=== PATIENT | female | born 1985 | race Caucasian/White ===

== ENCOUNTER 2019-07-30 03:46 | Inpatient (IN) | payer BC, OTHER ==
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
[2019-07-30 05:06] LABS: Basophils % (A) 0 %; Eosinophils # (A) 0.2 k/uL (0-0.7); Eosinophils % (A) 2 %; HCT 40.9 % (34.0-46.0); Lymphocytes # (A) 1.8 k/uL (1.0-4.8); Lymphocytes % (A) 17 %; MCH 31.8 pg (25.0-35.0); MCHC 34.2 g/dL (31.0-37.0); Mean Platelet Volume 6.8; Monocytes # (A) 0.5 k/uL (0-1.0); Monocytes % (A) 5 %; Neutrophils # (A) 7.8 k/uL (1.3-7.7); Neutrophils % (A) 74 %; Platelet Count 277 k/uL (150-450); RDW 11.9 % (11.5-15.5); WBC 10.5 k/uL (3.8-10.6)
[2019-07-30 05:17] LABS: Appearance,Urine Cloudy (Clear); Bacteria,Urine Rare /hpf; Bilirubin,Urine Negative (Negative); Blood,Urine Moderate (Negative); Color,Urine Yellow; Glucose,Urine (UA) Negative (Negative); Hyaline Casts,Urine 19 /lpf (0-2); Ketones,Urine 1+ (Negative); Leukocyte Esterase,Urine Trace (Negative); Mucus,Urine Few /hpf; Nitrite,Urine Negative (Negative); PH, Urine 5.5 (5.0-8.0); Protein,Urine 1+ (Negative); RBC,Urine 3 /hpf (0-5); Specific Gravity,Urine 1.031 (1.001-1.035); Squamous Epithelial Cell,Urine 13 /hpf (0-4); Urobilinogen,Urine <2.0 mg/dL (<2.0); WBC,Urine 8 /hpf (0-5)
[2019-07-30 05:20] LABS: Amphetamine Screen,Urine Not Detected (NotDetected); Barbiturate Screen,Urine Not Detected (NotDetected); Benzodiazepines Screen,Urine Not Detected (NotDetected); Cocaine Screen,Urine Not Detected (NotDetected); Methadone Screen, Urine Not Detected (NotDetected); Opiate Screen,Urine Not Detected (NotDetected); Oxycodone Screen, Urine Not Detected (NotDetected); Phencyclidine Screen,Urine Not Detected (NotDetected); Tricyclic Antidepressant,Urine Not Detected (NotDetected); Urn Cannabinoid Scrn Detected (NotDetected)
[2019-07-30 05:25] LABS: ALT 11 U/L (9-52); AST 17 U/L (14-36); Acetaminophen <10.0 ug/mL; African American GFR (CKD) >90 (>60 ml/min/1.73 sqM); Albumin 4.7 g/dL (3.5-5.0); Alcohol 26 mg/dL; Alkaline Phosphatase 90 U/L (38-126); Anion Gap 13 mmol/L; Blood Urea Nitrogen 14 mg/dL (7-17); Calcium 9.8 mg/dL (8.4-10.2); Carbon Dioxide 23 mmol/L (22-30); Chloride 108 mmol/L (98-107); Glucose 94 mg/dL (74-99); Non-African American GFR(CKD) >90 (>60 ml/min/1.73 sqM); Potassium 3.7 mmol/L (3.5-5.1); Sodium 144 mmol/L (137-145); Total Bilirubin 0.3 mg/dL (0.2-1.3); Total Protein 7.9 g/dL (6.3-8.2)
[2019-07-30] MEDS ORDERED: ZIPRASIDONE 20 MG VIAL IM PRN (07:22)
[2019-07-30] MEDS ORDERED: MAGNESIUM HYDROXIDE 2,400 MG/10 ML CUP PO PRN (07:22)
[2019-07-30] MEDS ORDERED: MAG HYDROX/AL HYDROX/SIMETH 30 ML CUP PO PRN (07:22)
[2019-07-30] MEDS ORDERED: LORazepam 1 MG TAB PO PRN (07:22)
[2019-07-30] MEDS ORDERED: LORazepam 2 MG/ML INJ IM PRN (07:25)
[2019-07-30 08:41] LABS: Basophils % (A) 1 %; Eosinophils # (A) 0.2 k/uL (0-0.7); Eosinophils % (A) 2 %; HCT 39.2 % (34.0-46.0); HGB 13.2 gm/dL (11.4-16.0); Lymphocytes # (A) 2.4 k/uL (1.0-4.8); Lymphocytes % (A) 25 %; MCH 31.8 pg (25.0-35.0); MCHC 33.8 g/dL (31.0-37.0); MCV 94.2 fL (80.0-100.0); Mean Platelet Volume 6.5; Monocytes # (A) 0.6 k/uL (0-1.0); Monocytes % (A) 6 %; Neutrophils # (A) 6.1 k/uL (1.3-7.7); Neutrophils % (A) 63 %; Platelet Count 284 k/uL (150-450); RBC 4.16 m/uL (3.80-5.40); RDW 11.9 % (11.5-15.5); WBC 9.6 k/uL (3.8-10.6)
[2019-07-30 09:03] LABS: ALT 15 U/L (9-52); AST 15 U/L (14-36); African American GFR (CKD) >90 (>60 ml/min/1.73 sqM); Alkaline Phosphatase 85 U/L (38-126); Anion Gap 11 mmol/L; Blood Urea Nitrogen 15 mg/dL (7-17); Calcium 9.3 mg/dL (8.4-10.2); Carbon Dioxide 26 mmol/L (22-30); Chloride 107 mmol/L (98-107); Cholesterol 137 mg/dL (<200); Glucose 91 mg/dL (74-99); HDL Cholesterol 60 mg/dL (40-60); LDL Cholesterol,Calculated 66 mg/dL (0-99); Non-African American GFR(CKD) >90 (>60 ml/min/1.73 sqM); Sodium 144 mmol/L (137-145); Total Bilirubin 0.2 mg/dL (0.2-1.3); Total Protein 7.3 g/dL (6.3-8.2); Triglycerides 54 mg/dL (<150)
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
[2019-07-30] MEDS: ESCITALOPRAM 10 MG TAB PO SCH (13:15)
--- NOTE | 2019-07-30 15:20 | P.PN ---
Progress Note - Text Progress Note Date: 07/30/19 Attempted to see patient for medical H and P. Patient refused for me to see her. Stated that she just wanted to sleep and yelled at me to get out. Asked nursing to notify us when patient is more amenable to be seen by medicine.
[2019-07-30 19:23] LABS: Hemoglobin A1C 4.8 % (4.0-6.0)
[2019-07-31] MEDS: ESCITALOPRAM 10 MG TAB PO SCH (08:46)
--- NOTE | 2019-07-31 10:24 | P.PN ---
Progress Note - Text Progress Note Date: 07/31/19 Interval history: Patient was seen today for cross coverage for Dr. Cohen. Patient was seen in her room and was lying down however was agreeable to speak to copy writer in the office. Patient gave very vague details as to why she was in the hospital and appeared to be guarded regarding the circumstances. Patient states that "I feel no different" when asked about her medications and about her mood. She states that she is not having any anxiety at this time and claims that she has been feeling tired throughout the day. She states that she has not been participating in groups much due to feeling tired. She claims that she was able to sleep through the night however did have some nausea/vomiting yesterday. Patient claims that she has poor appetite at this time however has been consuming fluids. At this time patient denies any suicidal or homicidal ideations intent or plan. Denies any Auditory or visual hallucinations. Patient denies any side effects from the medications and has been compliant with meds. Mental status exam: General Appearance: Patient appears to be stated age is alert, directable with marginal hygiene and grooming. Fair eye contact. Behavior: No agitated behavior. Patient is calm and directable Speech: Patient's speech is fluent and nonpressured. Soft-spoken. Mood/Affect: Mood is "the same", affect is congruent and constricted. Suicidality/Homicidality: Patient denies having any suicidal or homicidal ideation intent or plan. Perceptions: Patient denies any auditory or visual hallucinations. Though content/process: There is no evidence of any delusional thought content and thought process is linear and goal-directed. Patient is guarded/evasive. Memory and concentration: AOX3, grossly intact for the purposes of this session Judgment and insight: Poor, improving mildly. Assessment/Plan: Continue with current diagnosis. Patient continues to meet criteria for inpatient psychiatric admission for symptom stabilization and safety.Patient will be maintained on current psychotropic medication regimen. Will add Zofran 4 mg every 8 hours PRN for nausea/vomiting. Monitor for medication compliance and for any psychotropic medication side effects. Will continue to monitor ongoing response to treatment. Patient was encouraged to participate in group as best she can. Will follow up with social service liaison about status of CPS case. Will discuss with patient discharge planning and possibly inpatient rehab.
[2019-07-31] MEDS: ONDANSETRON 4 MG TAB PO PRN (10:47)
[2019-08-01] MEDS: ESCITALOPRAM 10 MG TAB PO SCH (08:44)
[2019-08-01] MEDS: ONDANSETRON 4 MG TAB PO PRN (08:45)
--- NOTE | 2019-08-01 09:54 | P.PN ---
Progress Note - Text Progress Note Date: 08/01/19 Interval history: Patient was seen today for cross coverage and patient was found lying on her bed however was agreeable to speak to commercial loan underwriter in the office and was calm and directable this morning. Patient appeared to have a mildly brighter affect this morning and more interactive. She states continues to be concrete and give few details about her symptoms and her thoughts/emotions. She states that she is feeling better today and claims that she is not feeling nauseous and did not vomit yesterday as she was taking the Zofran. She claims that she feels medication is helping with her mood and anxiety. When patient was asked about her substance use patient minimized her alcohol use and states that "I just drank a lot at one time and I'm not addicted". Patient declined wanting to go to inpatient rehab at this time. She stated that she did go to 1 group yesterday in the afternoon however felt that she did not benefit from it and has not gone to a group since then. Patient was encouraged to go to groups today and through the weekend. At this time patient denies any suicidal or ho micidal ideations intent or plan. Denies any Auditory or visual hallucinations. Patient denies any side effects from the medications and has been compliant with meds. Mental status exam: General Appearance: Patient appears to be stated age is alert, directable with marginal hygiene and grooming. Fair eye contact. Behavior: No agitated behavior. Patient is calm and directable Speech: Patient's speech is fluent and nonpressured. Mood/Affect: Mood is "ok", affect is congruent and brighter affect. Suicidality/Homicidality: Patient denies having any suicidal or homicidal ideation intent or plan. Perceptions: Patient denies any auditory or visual hallucinations. Though content/process: There is no evidence of any delusional thought content and thought process is linear and goal-directed. Patient is guarded/evasive. Memory and concentration: AOX3, grossly intact for the purposes of this session Judgment and insight: improving mildly, superficial.. Assessment/Plan: Continue with current diagnosis. Patient continues to meet criteria for inpatient psychiatric admission for symptom stabilization and safety.Patient will be maintained on current psychotropic medication regimen. Continue with Zofran 4 mg every 8 hours PRN for nausea/vomiting. Monitor for medication compliance and for any psychotropic medication side effects. Will continue to monitor ongoing response to treatment. Patient was encouraged to participate in group as best she can. CPS case was filed 2 days ago by social work job titles. Patient is declining inpatient rehab at this time, we'll continue to reassess.
[2019-08-02] MEDS: ONDANSETRON 4 MG TAB PO PRN (08:23)
[2019-08-02] MEDS: ESCITALOPRAM 10 MG TAB PO SCH (08:23)
--- NOTE | 2019-08-02 14:33 | P.PN ---
Progress Note - Text Progress Note Date: 08/02/19 This is a psychiatric progress note as a cross coverage for Sabino Cohen/Elsa Chief complaint: "Feeling much better today " Subjective: The patient has been seen today as follow-up, chart reviewed, case discussed with the treatment team. Patient slept about 7 hours last night. Patient has bee n going to groups and other unit activities. Patient reports better appetite. She reports improvement of her mood symptoms and feeling less depressed. She minimizes feeling hopeless and he denies any suicidal thoughts, intent, or plan to hurt self or others. She denies any severe mood swings, irritable mood, or outbursts of agitation/anger. She denies any homicidal ideation. The patient is compliant with her medications and denies any adverse reactions. The patient denies any manic symptoms including sustained period of time with elevated or irritable mood, impulsive or irrational behavior, or inflated self- esteem. The patient denies any auditory or visual hallucinations. Also the patient denies any paranoid ideation. Objective: Vitals has been reviewed. Mental status examination; Appearance: The patient appears stated age, adequately groomed and dressed, no specific features. Gait/posture: Normal gait, Normal arm swinging: No abnormal movements. Attitude and behavior: engaged, cooperative, eye contact. Motor activity: Normal psychomotor activity Speech: Normal rate, tone. Mood: Anxious, depressed Affect: Constricted Thought form: goal-directed, linear, coherent. Thought content: Non-delusional, denies suicidal thoughts, denies homicidal thoughts, denies intentions or plans. Perception: Denies any auditory or visual hallucinations Attention: No impairment. Patient was able to repeat serial 5. Orientation: Patient patient was fully oriented to time place person and situation. Insight: Patient has fair insight about his psychiatric disorder. Judgment: Patient has fair judgment about his psychiatric treatment. Assessment: Major depressive disorder, recurrent, severe without psychotic features. Unspecified anxiety disorder. Cannabis use disorder. Rule out methamphetamine use disorder. Rule out cocaine use disorder. Rule out alcohol use disorder. Cluster B personality disorder traits. Plan: Continue inpatient level of care for further stabilization on medications Precautions: Continue 15 minutes check for safety. Consider medical consultation if any acute medical issues arise. Provide the patient individual, group therapy, substance use disorder counseling to give better insight and learn coping skills. Medications: Except protein milligrams daily for depression and anxiety symptoms Discharge patient to OUTPATIENT services upon a stabilization
[2019-08-03] MEDS: ESCITALOPRAM 10 MG TAB PO SCH (08:24)
[2019-08-03] MEDS: ONDANSETRON 4 MG TAB PO PRN (08:25)
--- NOTE | 2019-08-03 12:23 | P.PN ---
Progress Note - Text Progress Note Date: 08/03/19 This is a psychiatric progress note as a cross coverage for Sabino Cohen/Elsa Chief complaint: "feeling ready to go home " Subjective: The patient has been seen today as follow-up, chart reviewed, case discussed with the treatment team. Patient reports good sleep and appetite and as per the chart review she slept 7 hours last night. Patient continued to report stability of her mood and he denies depression, feeling hopeless, or suicidal. She denies any mood swings, irritable mood, and he denies homicidal ideation. She denies any manic or psychotic symptoms. Patient continued to go to groups and actively participates in other unit activities. She continued to take her psychiatric medications and denies any side effects. Objective: Vitals has been reviewed. Mental status examination; Appearance: The patient appears stated age, adequately groomed and dressed, no specific features. Gait/posture: Normal gait, Normal arm swinging: No abnormal movements. Attitude and behavior: engaged, cooperative, eye contact. Motor activity: Normal psychomotor activity Speech: Normal rate, tone. Mood: "Fine" Affect: Constricted Thought form: goal-directed, linear, coherent. Thought content: Non-delusional, denies suicidal thoughts, denies homicidal thoughts, denies intentions or plans. Perception: Denies any auditory or visual hallucinations Attention: No impairment. Patient was able to repeat serial 5. Orientation: Patient patient was fully oriented to time place person and situation. Insight: Patient has fair insight about his psychiatric disorder. Judgment: Patient has fair judgment about his psychiatric treatment. Assessment: Major depressive disorder, recurrent, severe without psychotic features. Unspecified anxiety disorder. Cannabis use disorder. Rule out methamphetamine use disorder. Rule out cocaine use disorder. Rule out alcohol use disorder. Cluster B personality disorder traits. Plan: Continue inpatient level of care for further stabilization on medications Precautions: Continue 15 minutes check for safety. Consider medical consultation if any acute medical issues arise. Provide the patient individual, group therapy, substance use disorder counseling to give better insight and learn coping skills. Medications: Continue Lexapro 10 mg daily for depression and anxiety symptoms Discharge patient to OUTPATIENT services upon a stabilization
[2019-08-04 06:46] VITALS: BP 113/57; PULSE 74; RESP 18; TEMP 98.6
[2019-08-04] MEDS: ONDANSETRON 4 MG TAB PO PRN (08:29)
[2019-08-04] MEDS: ESCITALOPRAM 10 MG TAB PO SCH (08:29)
--- NOTE | 2019-08-04 10:54 | P.DS ---
Providers Date of admission: 07/30/19 07:19 Expected date of discharge: 08/04/19 Attending physician: Taiwo Cohen Consults: 07/30/19 07:22 Consult Physician Routine Consulting Provider: Sera Power Consult Reason/Comments: Medical Management Do you want consulting provider notified?: Yes Primary care physician: Stated None - Discharge Diagnosis(es) (1) Major depressive disorder, recurrent severe without psychotic features Current Visit: Yes Status: Acute Priority: High (2) Anxiety Current Visit: Yes Status: Acute Priority: Medium (3) Cannabis use disorder, mild, abuse Current Visit: Yes Status: Acute Priority: Medium Hospital Course: Brief summary of admission note: This patient is a 33-year-old female who was admitted to the mental health unit through the emergency room after overdosing with Motrin. The patient was petition by precinct police lieutenant indicating that she had taken Motrin 800s after an argument with her boyfriend and she informed the officer she didn't want to be here anymore. She had reported to the emergency room that she had taken 8 Motrin tablets as she believe she was ALLERGIC to the medicine. Later when I interviewed her on the mental health unit she stated that she didn't necessarily want to but did want her herself with the overdose. This occurred in the context of having a verbal altercation with her boyfriend. She had considered harming herself for the last week and had been struggling with depressive symptoms over the last several weeks. She described being tearful having low energy with excessive sleep low appetite with weight loss. She was struggling with anxiety symptoms. For full detail please refer to my psychiatric evaluation dated 07/30/2019. Summary of hospital course: The patient was admitted to the mental health unit on a petition and clinical certificate. She decided to sign in voluntarily. We reviewed her presenting symptoms and treatment options. We decided we would initiate Lexapro 10 mg daily for depressive and anxiety symptoms. We discussed potential benefits and side effects of Lexapro and her questions were answered. The patient initially did not attend groups but over the last several days she has participated in the milieu. She states that she had coworkers visit as well as her parents. She has had phone conversations with her boyfriend. She indicates he will come up to the mental health unit for a support meeting. She has been seen by internal medicine for routine history and physical exam. Social work met with the patient to complete a psychosocial assessment for discharge planning purposes. Today the patient indicates that her mood is much better she feels stable she reports no hopelessness thinking. Due to the overdose at home and her recent reported use of methamphetamine we contacted child protective services as she indicated there is a 12-year-old son in the home. Mental status exam: The patient is a female appearing her stated age. She is dressed in her own clothing hygiene grooming are adequate. Eye contact is appropriate. Speech is fluent spontaneous nonpressured. She indicates her mood is improved she reports no hopelessness thinking she reports no suicidal ideation intent or plan. She reports no homicidal ideation intent or plan. She is endorsing no auditory or visual hallucinations or any specific delusions. There is no observed evidence of psychosis. She demonstrates no tangential thinking loose associations or flight of ideas. She does not appear hypomanic or manic. Insight and judgment improved. She demonstrates no verbal or physical aggressiveness. She demonstrates no involuntary repetitive movements. She describes future oriented thinking specifically referring to returning to work and also establishing with a therapist as an outpatient. Impressions 1. Major depressive disorder recurrent severe without psychosis, anxiety unspecified, cannabis use disorder, rule out methamphetamine use disorder, rule out cocaine use disorder, rule out alcohol use disorder, suspect cluster B personality disorder traits Plan: The patient will be discharged mental health unit today. Social work will arrange for outpatient mental health follow-up. We will continue Lexapro 10 mg daily. We discussed the option of having her participate in inpatient chemical dependency treatment but she refuses. She continues to state "I'm not addicted I can just stop". She is not interested in any medication being prescribed specifically for chemical dependency. At this time there is no imminent safety risk she is appropriate for transition to outpatient care. She is instructed to return to the hospital with any acute safety concerns. Social work will attempt to arrange a support meeting involving the patient's boyfriend whom she lives with prior to her discharge. Patient Condition at Discharge: Stable Plan - Discharge Summary Discharge Rx Participant: No New Discharge Prescriptions: New Escitalopram [Lexapro] 10 mg PO DAILY #30 tab Discharge Medication List Escitalopram [Lexapro] 10 mg PO DAILY #30 tab 08/04/19 [Rx] Follow up Appointment(s)/Referral(s): [facility] [NON-STAFF] - 1 Week Patient Instructions/Handouts: Suicide Prevention (DC) Activity/Diet/Wound Care/Special Instructions: Activity and diet as tolerated. Avoid the use of street drugs and alcohol. Take all medications as prescribed. When you are in need of refills on your medications please contact your medical provider and/or outpatient psychiatrist to have this done. Please go to scheduled outpatient appointment for aftercare treatment. If symptoms return or become worse, call the crisis line at and/or go to the nearest emergency room for evaluation.
== END 2019-08-04 12:55 | disposition home or self-care (01) | DRG 885 ==
LOC: EC 03:46 → 3MHU 07:19
PROVIDERS: ADMIT Psychiatry & Neurology Psychiatry; ATTEND Psychiatry & Neurology Psychiatry
DX: F33.2 Major depressive disorder, recurrent severe without psychotic features (principal); F12.10 Cannabis abuse, uncomplicated; F17.200 Nicotine dependence, unspecified, uncomplicated; F41.9 Anxiety disorder, unspecified; F60.89 Other specific personality disorders; Z62.810 Personal history of physical and sexual abuse in childhood; Z79.899 Other long term (current) drug therapy; Z81.8 Family history of other mental and behavioral disorders; Z88.6 Allergy status to analgesic agent
CPT/HCPCS: 36415; 80053; 80061; 80306; 80320; 80329; 81001; 81025; 82075; 83036; 83520; 84443; 85025; 99285

== ENCOUNTER 2019-11-04 15:52 | Inpatient (IN) | payer BC, OTHER ==
--- NOTE | 2019-11-04 16:47 | ED ---
General Adult HPI - General Chief complaint: Abdominal Pain Stated complaint: Ectopic Time Seen by Provider: 11/04/19 16:03 Source: patient, EMS Mode of arrival: EMS Limitations: no limitations - History of Present Illness Initial comments: Veronica is a 34-year-old female currently presenting to the emergency department for a chief complaint of abdominal pain. Patient states she has had a pain in her abdomen for about a week but that it worsened today. States that her last menstrual period was sometime in early September, believes she is about 9 weeks . Patient does admit to slight vaginal bleeding while at [facility] but denies any other vaginal bleeding. Patient was transferred from [facility] for probable ectopic. In the emergency department in [facility] patient was found to have an hCG quantitative of 58,507.4. Urinalysis did have 16-25 white blood cells with 3-10 red blood cells. Urine culture was ordered. CBC showed a white blood cell count of 12.2. Hemoglobin 9.7. From July hemoglobin was 13. Ultrasound was obtained which showed a gestational sac with placental tissue projecting to the right side of the uterus most likely due to an ectopic . There is also abnormal echogenicity adjacent to the left ovary probably due to associated blood or hematoma. Patient currently sitting abdominal pain at a 6 out of 10. - Related Data Home Medications Medication Instructions Recorded Confirmed No Known Home Medications 11/04/19 11/04/19 Allergies Allergy/AdvReac Type Severity Reaction Status Date / Time No Known Allergies Allergy Verified 11/04/19 22:25 Review of Systems ROS Statement: Those systems with pertinent positive or pertinent negative responses have been documented in the HPI. ROS Other: All systems not noted in ROS Statement are negative. Past Medical History Past Medical History: No Reported History History of Any Multi-Drug Resistant Organisms: None Reported Past Surgical History: No Surgical Hx Reported Past Psychological History: No Psychological Hx Reported Smoking Status: Current every day smoker Past Alcohol Use History: Occasional Past Drug Use History: Marijuana - Past Family History Mother Family Medical History: No Reported History General Exam Limitations: no limitations General appearance: alert, in no apparent distress Head exam: Present: atraumatic, normocephalic, normal inspection Eye exam: Present: normal appearance, PERRL, EOMI. Absent: scleral icterus, conjunctival injection, periorbital swelling ENT exam: Present: normal exam, mucous membranes moist Neck exam: Present: normal inspection. Absent: tenderness, meningismus, lymphadenopathy Respiratory exam: Present: normal lung sounds bilaterally. Absent: respiratory distress, wheezes, rales, rhonchi, stridor Cardiovascular Exam: Present: regular rate, normal rhythm, normal heart sounds. Absent: systolic murmur, diastolic murmur, rubs, gallop, clicks GI/Abdominal exam: Present: soft, tenderness (Right lower quadrant abdominal tenderness.), normal bowel sounds. Absent: distended, guarding, rebound, rigid Speculum exam: Present: vaginal bleeding (Blood-tinged discharge noted). Absent: normal speculum exam, erythema, vaginal discharge, cervical discharge, foreign body, tissue, laceration By manual exam: Present: adnexal tenderness (R adnexal tenderness). Absent: normal by manual exam, cervical motion tenderness Course Vital Signs 11/04/19 11/04/19 16:04 18:08 Temperature 97.3 F L Pulse Rate 76 82 Respiratory 18 18 Rate Blood Pressure 105/58 97/54 O2 Sat by Pulse 100 100 Oximetry Medical Decision Making - Medical Decision Making Vitals stable in the emergency department. Patient does appear somewhat pale. Patient did have right lower quadrant tenderness and right adnexal tenderness on exam. Blood-tinged vaginal discharge noted on exam. According to outpatient labs she did have a hemoglobin of 9.7 which is decreased from baseline of 13.2 4 months ago. Ultrasound did reveal a probable ectopic . Patient does not have a [employer] at this time. Dr. Torres consulted Dr. Alba who did come in and evaluate patient. She reviewed ultrasound report. Patient is taken to OR. Has not had anything to eat or drink today. Type and screen pending - Lab Data Lab Results 11/04/19 11/04/19 Range/Units 17:22 17:24 Blood Type O Positive Blood Type Confirm O Positive Blood Type Recheck No Previous Record Bld Type Recheck Status CABO Indicated Antibody Screen NEGATIVE Spec Expiration Date 11/07/2019 - 2323 Critical Care Time Critical Care Time: Yes Total Critical Care Time: 33 Critical Care Time: This was necessary to prevent life-threatening deterioration. Patient was immediately assessed upon arrival. Considerable amount of time was spent at bedside performing serial reevaluation of the patient's abdomen as well as hemodynamic and clinical status. All previous reports are reviewed from another facility. Family members were contacted. Consultants including [employer] were consulted. Disposition Clinical Impression: Ectopic , Anemia Disposition: ADMITTED IP TO THIS HOSP Condition: Serious Time of Disposition: 23:00
[2019-11-04] MEDS ORDERED: HYDROmorphone 0.5 MG/0.5 ML SYRINGE IVP STA (17:04)
[2019-11-04] MEDS ORDERED: SODIUM CHLORIDE 0.9% 500 ML 500 ML IV STA (17:18)
[2019-11-04] MEDS ORDERED: NALOXONE 0.4 MG/ML 1 ML VIAL IV PRN (17:52)
[2019-11-04] MEDS ORDERED: SODIUM CHLORIDE 0.9% 1,000 ML IV SCH (18:00)
--- NOTE | 2019-11-04 18:21 | P.HPOB ---
History of Present Illness H&P Date: 11/04/19 Chief Complaint: Abdominal pain This is a 34-year-old 2 para 1001 woman with a positive home test 2 presented to an [facility] emergency Department with 4 day history of worsening severe abdominal pain. She reports a positive home test approximately 2 weeks ago and a last menstrual period sometime in early September. She has been having vaginal spotting for several weeks as well as mild abdominal pain for 2-3 weeks. It has significantly worsened over the last 12-24 hours. Ultrasound at [facility] shows a right adnexal ectopic with a gestational sac and crown rump length measuring 2.54 cm. The entire adnexal structure on the right measures 6.4 x 5.8 cm. There is no heart rate. There is no intrauterine noted. There is some free fluid noted in the pelvis and around the liver. The left ovary appears normal measuring 2.8 cm. Beta-hCG is 58,500. Hemoglobin is 9.6. She has a history of 1 previous term normal spontaneous vaginal delivery 12 years ago. She denies other gynecologic problems including recent history of pelvic infection or abnormal Pap smear. Review of Systems Constitutional: Denies chills, Denies fever Cardiovascular: Denies chest pain, Denies dyspnea on exertion, Denies high blood pressure, Denies irregular heart beat, Denies lightheadedness, Denies rapid heart beat, Denies shortness of breath Respiratory: Denies cough, Denies dyspnea Gastrointestinal: Reports abdominal pain, Reports loss of appetite, Denies BRBPR, Denies constipation, Denies diarrhea, Denies nausea, Denies vomiting Genitourinary: Reports abnormal vaginal bleeding, Reports , Denies hematuria Menstruation: Reports menses variable Musculoskeletal: Reports low back pain Integumentary: Denies rash Neurological: Denies headaches, Denies syncope Hematologic/Lymphatic: Denies easy bleeding, Denies easy bruising Past Medical History Past Medical History: No Reported History History of Any Multi-Drug Resistant Organisms: None Reported Additional Past Surgical History / Comment(s): Rhinoplasty Past Psychological History: No Psychological Hx Reported Smoking Status: Current every day smoker Past Alcohol Use History: Occasional Past Drug Use History: Marijuana Medications and Allergies Home Medications Medication Instructions Recorded Confirmed Type Escitalopram [Lexapro] 10 mg PO DAILY #30 tab 08/04/19 Rx Allergies Allergy/AdvReac Type Severity Reaction Status Date / Time ibuprofen [From Motrin] Allergy Rash/Hives Verified 11/04/19 16:08 Exam Vital Signs Temp Pulse Resp BP Pulse Ox 11/04/19 18:08 82 18 97/54 100 11/04/19 16:04 97.3 F L 76 18 105/58 100 Intake and Output 11/04/19 11/04/19 11/04/19 06:59 14:59 22:59 Other: Weight 52.163 kg This is an uncomfortable, pale-appearing female. HEENT exam is unremarkable. Her breathing is labored and her heart is of regular rate and rhythm. The abdomen is slim, tense with guarding. No distention. No surgical scars visible. There is positive bilateral flank pain. Pelvic examination is deferred. Neurologically she is grossly intact with normal mood and affect. No obvious skin rashes or lesions. Assessment and Plan (1) Ectopic Current Visit: Yes Status: Acute Code(s): O00.90 - UNSPECIFIED ECTOPIC WITHOUT INTRAUTERINE SNOMED Code(s): 29153155 Plan: This is a 34-year-old 2 para 1001 woman with large right adnexal ectopic mass measuring 6.4 x 5.8 cm with a crown rump length of 2.54 cm, no heart rate. There is evidence of hemoperitoneum. Findings reviewed in detail with the patient was explained to her that this is not a viable intraut erine . Due to the size of the ectopic mass I have recommended immediate surgical treatment. She is consented to undergo exploratory laparotomy with removal of ectopic , possible right salpingectomy, possible right salpingo-oophorectomy and indicated surgeries. Risks of the procedure were reviewed with the patient in detail and include bleeding, transfusion, infection, damage to bowel, bladder, ureters and or other pelvic structures, hysterectomy, left salpingo-oophorectomy. The patient understands these risks and consent is obtained. Blood type is currently pending.
[2019-11-04] MEDS ORDERED: ONDANSETRON 4 MG/2 ML VIAL ONE (18:27)
[2019-11-04] MEDS ORDERED: PROPOFOL 10 MG/ML 20 ML VIAL IV ONE (18:27)
[2019-11-04] MEDS ORDERED: SUCCINYLCHOLINE CHLORIDE 100 MG/5 ML SYR IV ONE (18:27)
[2019-11-04] MEDS ORDERED: PHENYLEPHRINE-0.9% NACL SYG 1 MG/10 ML SYRINGE ONE (18:27)
[2019-11-04] MEDS ORDERED: fentaNYL (PF) 50 MCG/ML 2 ML AMP ONE (18:27)
[2019-11-04] MEDS ORDERED: LIDOCAINE 1% INJ 10MG/ML (20 ML MDV) ONE (18:27)
[2019-11-04] MEDS ORDERED: GLYCOPYRROLATE 0.2 MG/ML 2 ML VIAL ONE (18:27)
[2019-11-04] MEDS ORDERED: ROCURONIUM BROMIDE 10 MG/ML 5 ML VIAL IV ONE (18:27)
[2019-11-04] MEDS ORDERED: NEOSTIGMINE 1 MG/ML 10 ML VIAL ONE (18:27)
[2019-11-04] MEDS ORDERED: SODIUM CHLORIDE 0.9% 1,000 ML IV ONE (18:31)
[2019-11-04] MEDS ORDERED: ceFAZolin 1,000 MG VIAL IVPB ONE (18:40)
[2019-11-04] MEDS ORDERED: LACTATED RINGERS 1,000 ML IV ONE (19:22)
--- NOTE | 2019-11-04 19:35 | P.OP ---
Date of Procedure: 11/04/19 Preoperative Diagnosis: Right ectopic Postoperative Diagnosis: Ruptured right ectopic Procedure(s) Performed: Exploratory laparotomy, evacuation of hemoperitoneum, right salpingectomy Anesthesia: STEFAN Surgeon: Joselyn Alba [employer] Lecturer #1: Jimmy Madrid Estimated Blood Loss (ml): 600 (550 mL's of hemoperitoneum and organized clot, 50 mL's of acute blood loss in procedure) IV fluids (ml): 600 Urine output (ml): 200 Pathology: other (Right ectopic mass and right fallopian tube) Condition: stable Disposition: PACU Operative Findings: 550 a.m. hours of hemoperitoneum and organized clot. Large right ectopic mass partially excised treating a amniotic sac with fetus approximately 8-10 week size. Normal appearing right ovary. Filmy peritoneal adhesions involving left fallopian tube and left ovary. Uterus small and grossly normal. Description of Procedure: After the patient was met and counseled in the emergency room she was trans ported the operating room where general anesthetic was administered without incident. She was then positioned, prepped and draped in the dorsal supine position with a Melissa catheter in place. A low transverse skin incision was made and carried down to the underlying fascia sharply. The fascia was incised in the midline and extended bilaterally with the Melvin scissors. The superior and inferior aspects of the fascial incision were elevated and the underlying rectus muscles dissected off sharply. The rectus muscles were in the midline and the peritoneum was tented up. Hemoperitoneum was appreciated. The peritoneum was entered and the incision was extended inferiorly and superiorly. Hemoperitoneum was evacuated and a self-retaining retractor was placed. Bowel was packed away from the surgical field. A very large right adnexal structure that appeared to be the entirety of the right fallopian tube was noted. There was a obvious rupture point midway along the fallopian tube immediately from which a amniotic sac with the fetus was partially expelled. This was manually removed as pathology specimen. The remaining hyperemic and damaged fallopian tube was carefully dissected both sharply and bluntly away from its peritoneal adhesions and the right ovary. Ara clamp was then utilized to place a clamp across the mesosalpinx and the tube was amputated. 2-0 Vicryl suture was utilized to doubly suture ligate the pedicle. The rest of the pelvis was explored. There were some filmy adhesions to the left fallopian tube and ovary which were excised with Metzenbaum scissors. The pelvis and abdomen were copiously suction irrigated and surgical site was reinspected. Hemostasis was noted. The uterus appeared grossly normal. Retractor was removed as were the sponges. The rectus muscles and peritoneal edges were inspected and noted to be hemostatic. The peritoneum was closed with 2-0 Vicryl suture. The fascia was then closed in a running fashion with 0 Vicryl suture. The subcutaneous tissue was irrigated. The skin was closed in a subcuticular fashion using 4-0 Vicryl suture. All counts reported to me as correct by the operating room staff. The patient was awoken from anesthetic without incident and was transported to the recovery area in good condition.
[2019-11-04] MEDS ORDERED: HYDROcodone/APAP 5-325MG 1 EACH TAB PO PRN (19:38)
[2019-11-04] MEDS ORDERED: HYDROmorphone 0.5 MG/0.5 ML SYRINGE IVP PRN (19:43)
[2019-11-04] MEDS: HYDROmorphone 1 MG/ML 1 ML SYRINGE IVP ONE ×4 (19:49→20:13)
[2019-11-04] MEDS ORDERED: ACETAMINOPHEN IV (For NPO) 1,000 MG in EMPTY BAG 1 BAG IVPB ONE (20:00)
[2019-11-04] MEDS ORDERED: IBUPROFEN 400 MG TAB PO PRN (22:25)
[2019-11-04] MEDS: LACTATED RINGERS 1,000 ML IV SCH (22:36)
[2019-11-05] MEDS: LACTATED RINGERS 1,000 ML IV SCH (05:48)
--- NOTE | 2019-11-05 06:49 | P.PN ---
Subjective Progress Note Date: 11/05/19 Principal diagnosis: Ectopic Feeling well overnight. Pain well-controlled. She reports she does not have an ALLERGY to Motrin as indicated on her chart previously. She does report nausea and vomiting with codeine and hydrocodone. She is feeling hungry this morning. Objective - Vital Signs Vital signs: Vital Signs Temp 97.4 F L 11/05/19 05:52 Pulse 85 11/05/19 05:52 Resp 12 11/05/19 05:52 BP 89/49 11/05/19 05:52 Pulse Ox 99 11/05/19 05:52 Intake & Output 11/04/19 11/04/19 11/05/19 06:59 18:59 06:59 Intake Total 900 325 Output Total 1150 Balance 900 -825 Weight 52.163 kg 52.163 kg Intake: IV 900 300 Oral 25 Output: Urine 1100 Uretheral (Melissa) 200 Estimated Blood Loss 50 Other: Voiding Method Indwelling Catheter - Constitutional General appearance: Present: average body habitus - Respiratory Respiratory: bilateral: CTA - Cardiovascular Rhythm: regular - Gastrointestinal Gastrointestinal Comment(s): Incision intact, dressing dry General gastrointestinal: Present: soft, tenderness - Psychiatric Psychiatric: Present: appropriate affect Assessment and Plan (1) Ectopic Current Visit: Yes Status: Acute Code(s): O00.90 - UNSPECIFIED ECTOPIC WITHOUT INTRAUTERINE SNOMED Code(s): 33060029 Plan: This is a 34-year-old 2 para 1001 woman with large right adnexal ectopic status post exploratory laparotomy, evacuation of hemoperitoneum and right salpingectomy. Operative findings reviewed with the patient in detail this morning. Her morning labs are pending. Clinically she is recovering well. Plan is to advance diet as tolerated, transition to oral pain medications, is continue Melissa catheter. If she does well she may be discharged [facility] or tomorrow.
[2019-11-05 07:36] LABS: Basophils % (A) 0 %; Eosinophils # (A) 0.1 k/uL (0-0.7); Eosinophils % (A) 1 %; HCT 20.1 % (34.0-46.0); Lymphocytes # (A) 1.8 k/uL (1.0-4.8); Lymphocytes % (A) 19 %; MCH 30.8 pg (25.0-35.0); MCHC 32.9 g/dL (31.0-37.0); MCV 93.8 fL (80.0-100.0); Mean Platelet Volume 7.9; Monocytes # (A) 0.6 k/uL (0-1.0); Monocytes % (A) 6 %; Neutrophils # (A) 6.5 k/uL (1.3-7.7); Neutrophils % (A) 71 %; Platelet Count 177 k/uL (150-450); RBC 2.15 m/uL (3.80-5.40); RDW 12.4 % (11.5-15.5); WBC 9.1 k/uL (3.8-10.6)
[2019-11-05] MEDS: IBUPROFEN 600 MG TAB PO PRN ×3 (08:02→20:06)
[2019-11-05 08:11] LABS: HGB 6.6 gm/dL (11.4-16.0)
[2019-11-05] MEDS: ACETAMINOPHEN TAB 325 MG TAB PO PRN ×2 (10:40→17:42)
[2019-11-06] MEDS: ACETAMINOPHEN TAB 325 MG TAB PO PRN ×2 (00:08→08:48)
[2019-11-06] MEDS: IBUPROFEN 600 MG TAB PO PRN (06:43)
[2019-11-06 08:16] LABS: Basophils % (A) 0 %; Eosinophils # (A) 0.1 k/uL (0-0.7); Eosinophils % (A) 1 %; Lymphocytes # (A) 1.7 k/uL (1.0-4.8); Lymphocytes % (A) 23 %; MCH 29.9 pg (25.0-35.0); MCHC 32.6 g/dL (31.0-37.0); MCV 91.5 fL (80.0-100.0); Mean Platelet Volume 7.8; Monocytes # (A) 0.4 k/uL (0-1.0); Monocytes % (A) 6 %; Neutrophils # (A) 5.2 k/uL (1.3-7.7); Neutrophils % (A) 69 %; Platelet Count 195 k/uL (150-450); RDW 12.6 % (11.5-15.5); WBC 7.5 k/uL (3.8-10.6)
[2019-11-06 08:17] LABS: HGB 6.3 gm/dL (11.4-16.0)
--- NOTE | 2019-11-06 08:18 | P.DS ---
Providers Date of admission: 11/05/19 09:51 Expected date of discharge: 11/06/19 Attending physician: Joselyn Alba Primary care physician: Stated None - Discharge Diagnosis(es) (1) Ectopic Current Visit: Yes Status: Acute (2) Anemia Current Visit: Yes Status: Acute Hospital Course: This is a 34-year-old 2 para 1 woman who presented from an surgical specialty center at [facility] emergency room with findings of a right adnexal ectopic . She had an unknown LMP however had been experiencing 4 days of severe abdominal pain with an increasing intensity. She had abnormal bleeding and spotting for several weeks. She did have a positive home test however had not established obstetric care as of yet. Ultrasound showed a large on the right adnexal ectopic with a an actual crown rump length of 2.5 cm. The ectopic mass was approximately 6.5 cm. She was taken to the operating room where she underwent an exploratory laparotomy. Findings at the time of surgery were significant for the proxy 550 mL's of hemoperitoneum. There was a large right on tubal ectopic that was partially ruptured. She underwent a right salpingectomy and evacuation of hemoperitoneum. Her preop hemoglobin was 9.6 at the surgical specialty center at [facility]. By the morning of postoperative day #1 her on the hemoglobin was 6.6. She did have some hypotension with systolic blood pressures in the 70s to 80s over diastolic blood pressures of 50s. She had mild tachycardia in the 100s. She was able to ambulate without difficulty and was otherwise asymptomatic. On postop day 1 her diet was advanced and she was transitioned to oral pain medications. By postoperative day #2 she reports she is feeling significantly better. She is ambulating and voiding without difficulty, lightheadedness or other complaints. She denies shortness of breath or chest pain. She is complaining of gas pain however is passing flatus. Her pain is well-controlled with oral pain medications. She has no vaginal bleeding. Her incision appears intact and well-healing. Her postop day 2 labs are pending. She will be discharged home with instructions for close follow-up pending results of her morning labs. Procedures: Exploratory laparotomy, evacuation of hemoperitoneum, right salpingectomy Patient Condition at Discharge: Good Plan - Discharge Summary New Discharge Prescriptions: New Ferrous Sulfate [Feosol] 325 mg PO BID #60 tab Discharge Medication List Ferrous Sulfate [Feosol] 325 mg PO BID #60 tab 11/06/19 [Rx] Follow up Appointment(s)/Referral(s): None,Stated [Primary Care Provider] - 1-2 days Activity/Diet/Wound Care/Special Instructions: May use [id number] Tylenol and/or ibuprofen as needed for pain as in structed. No heavy lifting or vigorous exercise until seen postoperatively. Nothing in the vagina, no intercourse for 4 weeks. Call the office with any concerning signs or symptoms including redness or foul drainage from the incision, severe abdominal or pelvic pain, inability to void, fever greater than 100.5, redness or swelling of the lower extremities or heavy vaginal bleeding. Follow-up in the office 2 weeks postoperatively. Discharge Disposition: HOME SELF-CARE
[2019-11-06 08:19] LABS: HCT 19.2 % (34.0-46.0)
[2019-11-06 08:54] VITALS: BP 98/57; PULSE 99; RESP 16; TEMP 97.9
== END 2019-11-06 10:30 | disposition home or self-care (01) | DRG 817 ==
LOC: EC 15:52 → 4FBP 19:32 → OBSVTOIN 11-05 09:51
PROVIDERS: ADMIT Obstetrics & Gynecology; ATTEND Obstetrics & Gynecology
PROC: 10T20ZZ Resection of Products of Conception, Ectopic, Open Approach (ICD-10-PCS; principal; 2019-11-04 18:09)
PROC: 0UT50ZZ Resection of Right Fallopian Tube, Open Approach (ICD-10-PCS; principal; 2019-11-04 18:09)
DX: O00.101 Right tubal pregnancy without intrauterine pregnancy (principal); K66.1 Hemoperitoneum; I95.9 Hypotension, unspecified; K66.0 Peritoneal adhesions (postprocedural) (postinfection); D64.9 Anemia, unspecified; Z79.899 Other long term (current) drug therapy; F17.200 Nicotine dependence, unspecified, uncomplicated; Z88.6 Allergy status to analgesic agent
CPT/HCPCS: 85025; 86850; 86900; 86901; 88305; 96361; 96374; 99291

== ENCOUNTER 2022-02-12 02:31 | Emergency (ER) | payer BC, MEDICAID, OTHER ==
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
[2022-02-12 02:54] VITALS: TEMP 98.1
[2022-02-12 03:32] LABS: Amphetamine Screen,Urine Not Detected (NotDetected); Barbiturate Screen,Urine Not Detected (NotDetected); Benzodiazepines Screen,Urine Not Detected (NotDetected); Cocaine Screen,Urine Detected (NotDetected); Methadone Screen, Urine Not Detected (NotDetected); Opiate Screen,Urine Not Detected (NotDetected); Oxycodone Screen, Urine Not Detected (NotDetected); Phencyclidine Screen,Urine Not Detected (NotDetected); Tricyclic Antidepressant,Urine Not Detected (NotDetected); Urn Cannabinoid Scrn Detected (NotDetected)
[2022-02-12 06:52] VITALS: BP 101/67; PULSE 74; RESP 16
== END 2022-02-12 06:58 | disposition home or self-care (01) ==
LOC: EC 02:31
DX: F32.A Depression, unspecified (principal); F41.9 Anxiety disorder, unspecified; F12.10 Cannabis abuse, uncomplicated
CPT/HCPCS: 80306; 82075; 99285

== ENCOUNTER 2023-05-22 21:02 | Emergency (ER) | payer OTHER ==
[2023-05-22 21:08] VITALS: TEMP 97.7
--- NOTE | 2023-05-22 22:07 | XR ---
EXAMINATION TYPE: XR chest 2V DATE OF EXAM: 05/22/2023 COMPARISON: None INDICATION: Cough TECHNIQUE: Frontal and lateral views of the chest are obtained. FINDINGS: The heart size is normal. The pulmonary vasculature is normal. The lungs are clear. IMPRESSION: 1. No acute pulmonary process.
[2023-05-22] MEDS ORDERED: IPRATROPIUM-ALBUTEROL 3 ML NEB INHALATION STA (23:16)
[2023-05-22] MEDS ORDERED: dexAMETHasone 2 MG TAB PO STA (23:17)
--- NOTE | 2023-05-22 23:33 | ED ---
General Adult HPI - General Chief complaint: Upper Respiratory Infection Stated complaint: SOB Time Seen by Provider: 05/22/23 23:07 Source: patient, RN notes reviewed Mode of arrival: ambulatory Limitations: no limitations - History of Present Illness Initial comments: 37-year-old female presents to the emergency department chief complaint of cough and congestion 2 days. She states that today she feels that she is wheezing. She feels that she is more short of breath. She has inhalers that she uses at home which helped somewhat. She denies fever, chills. Denies any significant past medical history no known medication ALLERGIES. - Related Data Previous Rx's Medication Instructions Recorded Ferrous Sulfate [Feosol] 325 mg PO BID #60 tab 11/06/19 predniSONE 50 mg PO DAILY #5 tab 05/23/23 Allergies Allergy/AdvReac Type Severity Reaction Status Date / Time No Known Allergies Allergy Verified 05/22/23 21:06 Review of Systems ROS Statement: Those systems with pertinent positive or pertinent negative responses have been documented in the HPI. ROS Other: All systems not noted in ROS Statement are negative. Past Medical History Past Medical History: No Reported History History of Any Multi-Drug Resistant Organisms: None Reported Past Surgical History: No Surgical Hx Reported Additional Past Surgical History / Comment(s): Rhinoplasty, wisdom tooth extraction Past Anesthesia/Blood Transfusion Reactions: No Reported Reaction Past Psychological History: No Psychological Hx Reported Smoking Status: Current every day smoker Past Alcohol Use History: Occasional Past Drug Use History: Marijuana - Past Family History Mother Family Medical History: No Reported History General Exam Limitations: no limitations General appearance: alert, in no apparent distress Head exam: Present: atraumatic, normocephalic, normal inspection Eye exam: Present: normal appearance, PERRL, EOMI. Absent: scleral icterus, conjunctival injection, periorbital swelling ENT exam: Present: normal exam, mucous membranes moist Neck exam: Present: normal inspection. Absent: tenderness, meningismus, lymphadenopathy Respiratory exam: Present: wheezes. Absent: respiratory distress, rhonchi, stridor, chest wall tenderness, accessory muscle use Cardiovascular Exam: Present: regular rate, normal rhythm, normal heart sounds. Absent: systolic murmur, diastolic murmur, rubs, gallop, clicks GI/Abdominal exam: Present: soft, normal bowel sounds. Absent: distended, tenderness, guarding, rebound, rigid Extremities exam: Present: normal inspection, full ROM, normal capillary refill. Absent: tenderness, pedal edema, joint swelling, calf tenderness Back exam: Present: normal inspection Neurological exam: Present: alert, oriented X3 Psychiatric exam: Present: normal affect, normal mood Skin exam: Present: warm, dry, intact, normal color. Absent: rash Course Vital Signs 05/22/23 05/22/23 05/22/23 21:04 23:30 23:37 Temperature 97.7 F Pulse Rate 99 96 100 Respiratory 18 Rate Blood Pressure 141/85 O2 Sat by Pulse 96 Oximetry Medical Decision Making - Medical Decision Making Was pt. sent in by a medical professional or institution (, [facility], [employer], urgent care, hospital, or usp...) When possible be specific @ -No Did you speak to anyone other than the patient for history (EMS, parent, family, police, friend...)? What history was obtained from this source @ -No Did you review nursing and triage notes (agree or disagree)? Why? @ -I reviewed and agree with nursing and triage notes Were old charts reviewed (outside hosp., previous admission, EMS record, old EKG, old radiological studies, urgent care reports/EKG's, usp records)? Report findings @ -No old charts were reviewed Differential Diagnosis (chest pain, altered mental status, abdominal pain women, abdominal pain men, vaginal bleeding, weakness, fever, dyspnea, syncope, headache, dizziness, GI bleed, back pain, seizure, CVA, palpatations, mental health, musculoskeletal)? @ -flu, covid, RSV, viral URI, pneumonia, this list is not all inclusive EKG interpreted by me (3pts min.). @ -none X-rays interpreted by me (1pt min.). @ -Chest XR shows no evidence of acute process CT interpreted by me (1pt min.). @ -None done U/S interpreted by me (1pt. min.). @ -None done What testing was considered but not performed or refused? (CT, X-rays, U/S, labs)? Why? @ -None What meds were considered but not given or refused? Why? @ -None Did you discuss the management of the patient with other professionals (professionals i.e. , [facility], [employer], lab, RT, psych nurse, social science manager, occup therapist, teacher, hydrographical technical officer, case operator)? Give summary @ -No Was smoking cessation discussed for >3mins.? @ -No Was critical care preformed (if so, how long)? @ -No Were there social determinants of health that impacted care today? How? (Homelessness, low income, unemployed, alcoholism, drug addiction, transportation, low edu. Level, literacy, decrease access to med. care, detention, rehab)? @ -No Was there de-escalation of care discussed even if they declined (Discuss DNR or withdrawal of care, Hospice)? DNR status @ -No What co-morbidities impacted this encounter? (DM, HTN, Smoking, COPD, CAD, Cancer, CVA, ARF, Chemo, Hep., AIDS, mental health diagnosis, sleep apnea, morbid obesity)? @ -None Was patient admitted / discharged? Hospital course, mention meds given and route, prescriptions, significant lab abnormalities, going to OR and other pertinent info. @ -discharged. Patient presented to emergency department chief complaint of cough, congestion and feeling wheezy. She states that her symptoms started yesterday but felt more short of breath today. She has been utilizing her inhalers with some relief. Flu, Covid, RSV negative. Chest XR shows no evidence of acute process. She given DuoNeb treatment and decadron which improved her symptoms. Prescription sent for prednisone x5 days. patient stable at time of discharge. Case discussed with Dr. Guillermo Undiagnosed new problem with uncertain prognosis? @ -No Drug Therapy requiring intensive monitoring for toxicity (Heparin, Nitro, Insulin, Cardizem)? @ -No Were any procedures done? @ -No Diagnosis/symptom? @ -viral URI Acute, or Chronic, or Acute on Chronic? @ -acute Uncomplicated (without systemic symptoms) or Complicated (systemic symptoms)? @ -uncomplicated Side effects of treatment? @ -No Exacerbation, Progression, or Severe Exacerbation? @ -No Poses a threat to life or bodily function? How? (Chest pain, [place], NH, pneumonia, PE, COPD, DKA, ARF, appy, cholecystitis, CVA, Diverticulitis, Homicidal, Suicidal, threat to staff... and all critical care pts) @ -No - Lab Data Lab Results 05/22/23 Range/Units 21:09 Influenza Type A (PCR) Not Detected (Not Detectd) Influenza Type B (PCR) Not Detected (Not Detectd) RSV (PCR) Not Detected (Not Detectd) SARS-CoV-2 (PCR) Not Detected (Not Detectd) Disposition Clinical Impression: Upper respiratory tract infection Disposition: HOME SELF-CARE Condition: Stable Instructions (If sedation given, give patient instructions): Upper Respiratory Infection (ED) Additional Instructions: Please follow up with your primary care provider. Return to the emergency department for new or worsening symptoms. Prescriptions: predniSONE 50 mg PO DAILY #5 tab Is patient prescribed a controlled substance at d/c from ED?: No Referrals: Suresh Lopez MD [Primary Care Provider] - 1-2 days Christal Delgado MD [STAFF PHYSICIAN] - 1-2 days Time of Disposition: 00:19
[2023-05-22 23:37] VITALS: PULSE 100
[2023-05-23 00:30] VITALS: BP 126/79; RESP 20
== END 2023-05-23 00:27 | disposition home or self-care (01) ==
LOC: EC 21:02
DX: J06.9 Acute upper respiratory infection, unspecified (principal); F17.200 Nicotine dependence, unspecified, uncomplicated; F12.90 Cannabis use, unspecified, uncomplicated; Z20.822 Contact with and (suspected) exposure to COVID-19
CPT/HCPCS: 94640; 87636; 71046; 99285; J8540

== ENCOUNTER → 2023-06-05 | Outpatient (CLI) | payer OTHER | END | disposition home or self-care (01) | LOC: LABWHC1 10:31 | PROVIDERS: ATTEND Internal Medicine | DX: J45.40 Moderate persistent asthma, uncomplicated (principal); J30.2 Other seasonal allergic rhinitis | CPT/HCPCS: 36415; 82785; 85008 ==